=== PATIENT | male | born 1935 | race Two or more races ===

== ENCOUNTER 2017-03-22 21:39 | Inpatient (IN) | payer OTHER ==
[~2017-03-22] VITALS: Ht 177.8 cm; Wt 99.8 kg
[~2017-03-22 21:39] MED LIST: FLUO-126 PO; GLIP-204 PO; LISINOPRIL HYDROCHLOROTHIAZIDE; MEMA10TA PO; METO-169 PO; RIVA6CAP4 PO
[2017-03-22 22:27] LABS: Basophils # (auto) 0.1 uL; Basophils % (auto) 0.8 % (0.0-2.0); Eosinophils # (auto) 0.3 uL; Eosinophils % (auto) 3.5 % (0.0-7.0); Hematocrit 34.8 % (41.0-53.0); Hemoglobin 11.6 g/dL (13.5-17.5); Lymphocytes # (auto) 1.2 uL; Lymphocytes % (auto) 14.6 % (10.0-50.0); Mean Corpuscular Hemoglobin 31.7 pg (28.0-32.0); Mean Corpuscular Hgb Conc. 33.2 g/dL (32.0-36.0); Mean Corpuscular Volume 95.4 fL (80.0-100.0); Mean Platelet Volume 9.3 fL (7.4-10.4); Monocytes # (auto) 0.8 uL; Monocytes % (auto) 9.8 % (0.0-12.0); Neutrophils # (auto) 5.9 uL; Neutrophils % (auto) 71.3 % (37.0-80.0); Platelet Count (auto) 182 10^3/uL (140-450); White Blood Cell 8.3 10^3/uL (4.4-10.8)
[2017-03-22 22:30] LABS: Urine Bilirubin Negative (Negative); Urine Blood Negative /uL (Negative); Urine Color Yellow (Yellow); Urine Glucose Normal (Normal); Urine Ketone Negative (Negative); Urine Mucus FEW (None Seen); Urine Nitrite Negative (Negative); Urine RBC <1 /hpf (0 - 3); Urine Squamous Epithelial Cell FEW /hpf (<5); Urine Urobilinogen Normal (Negative); Urine pH 5.5 (5.0-8.0)
[2017-03-22 22:56] LABS: Albumin 2.9 g/dL (3.4-5.0); Alkaline Phosphatase 97 U/L (45-117); Anion Gap 8 (5-15); Aspartate Aminotransferase 17 U/L (15-37); BUN/Creatinine Ratio 16.9; Bilirubin, Total 0.3 mg/dL (0.2-1.0); Blood Urea Nitrogen 44 mg/dL (7-18); Calcium 8.1 mg/dL (8.5-10.1); Carbon Dioxide 23 mmol/L (21-32); Chloride 108 mmol/L (98-107); GFR African American 31 mL/min; GFR Non-African American 25 mL/min; Glucose 169 mg/dL (74-106); Magnesium 2.6 mg/dL (1.6-2.6); Potassium 4.5 mmol/L (3.5-5.1); Sodium 139 mmol/L (136-145); Total Protein 5.7 g/dL (6.4-8.2)
[2017-03-22 22:57] LABS: Lactic Acid w/Reflex 2.9 mmol/L (0.4-2.0)
[2017-03-22 22:58] LABS: REFLEX LACTIC ACID YES OR NO YES
[2017-03-23] MEDS ORDERED: HALOPERIDOL LACTATE 5 MG/ML INJ VIAL ONE (03:13)
[2017-03-23] MEDS ORDERED: HALOPERIDOL LACTATE 5 MG/ML INJ VIAL IM ONE (03:30)
[2017-03-23] MEDS ORDERED: NITROGLYCERIN 0.4 MG SL TAB SL PRN (05:30)
[2017-03-23] MEDS ORDERED: MORPHINE SULF INJ 2 MG/ML SYRINGE 1ML IV PRN ×2 (05:30→05:45)
[2017-03-23] MEDS ORDERED: ACETAMINOPHEN 500 MG TAB PO PRN (05:45)
[2017-03-23] MEDS ORDERED: ONDANSETRON HCL 4 MG/2 ML VIAL IV PRN (05:45)
[2017-03-23] MEDS ORDERED: DEXTROSE (50%) 50ML SYRG IV PRN (05:45)
[2017-03-23] MEDS ORDERED: LORazepam 2MG/ML-1ML VIAL IV PRN (05:45)
[2017-03-23] MEDS ORDERED: HYDROcodone-ACET 5/325MG TAB PO PRN (05:45)
[2017-03-23] MEDS ORDERED: InsuLIN REG 1unit/0.01ml Soln (100units/ml) SC SCH (07:00)
[2017-03-23] MEDS ORDERED: glipiZIDE 5 MG TAB PO SCH (07:00)
[2017-03-23] MEDS ORDERED: ACCU-CHEK COMFORT CURVE STRIP VI SCH (07:00)
[2017-03-23 08:29] VITALS: BP 156/82
[2017-03-23] MEDS ORDERED: LOR05T PO (09:08)
[2017-03-23] MEDS ORDERED: TAMS0.4C36 PO (09:08)
[2017-03-23] MEDS ORDERED: DUTA0.5C11 PO (09:08)
[2017-03-23] MEDS ORDERED: ERGO1CAP6 PO (09:08)
[2017-03-23] MEDS ORDERED: ASPI81TA27 PO (09:08)
[2017-03-23] MEDS ORDERED: HCTZ 25 MG TAB PO SCH (10:00)
[2017-03-23] MEDS ORDERED: METOPROLOL SUCCINATE XL 50 MG TAB PO SCH (10:00)
[2017-03-23] MEDS ORDERED: MEMANTINE HCL 5 MG TAB PO SCH (10:00)
[2017-03-23] MEDS ORDERED: LISINOPRIL 20 MG TAB PO SCH (10:00)
[2017-03-23] MEDS ORDERED: FLUoxetine HCL 20 MG CAP PO SCH (10:00)
[2017-03-23] MEDS ORDERED: SODIUM CHLORIDE 0.9% 1,000 ML IV ONE (12:00)
[2017-03-23] MEDS ORDERED: amLODIPine BESYLATE 5 MG TAB PO ONE (12:15)
[2017-03-23 12:51] LABS: BUN/Creatinine Ratio 19.2; Calcium 8.2 mg/dL (8.5-10.1); Potassium 4.2 mmol/L (3.5-5.1)
[2017-03-23] MEDS ORDERED: AML5T PO (13:17)
[2017-03-23 14:57] VITALS: BP 141/81
[2017-03-23] MEDS ORDERED: RIVASTIGMINE 6 MG PO SCH (18:00)
[2017-03-23] MEDS ORDERED: TAMSULOSIN HYDROCHLORIDE 0.4 MG CAP PO SCH (18:00)
[2017-03-24] MEDS ORDERED: amLODIPine BESYLATE 5 MG TAB PO SCH (10:00)
[2017-03-25] MEDS ORDERED: ACET250T3 PO (02:15)
== END 2017-03-23 15:33 | disposition home or self-care (01) | DRG 682 ==
LOC: EDBD 21:39 → ER 21:39 → TELE 21:40 → TELE-E-ADS 03-23 08:33
PROVIDERS: ADMIT Nurse Practitioner Family; ATTEND Internal Medicine
DX: N17.0 Acute kidney failure with tubular necrosis (principal); G93.41 Metabolic encephalopathy; E44.0 Moderate protein-calorie malnutrition; I13.10 Hypertensive heart and chronic kidney disease without heart failure, with stage 1 through stage 4 chronic kidney disease, or unspecified chronic kidney disease; E11.22 Type 2 diabetes mellitus with diabetic chronic kidney disease; E86.0 Dehydration; N18.4 Chronic kidney disease, stage 4 (severe); F32.9 Major depressive disorder, single episode, unspecified; F02.80 Dementia in other diseases classified elsewhere, unspecified severity, without behavioral disturbance, psychotic disturbance, mood disturbance, and anxiety; E78.5 Hyperlipidemia, unspecified; G30.9 Alzheimer's disease, unspecified; N40.0 Benign prostatic hyperplasia without lower urinary tract symptoms; T44.7X5A Adverse effect of beta-adrenoreceptor antagonists, initial encounter; Z82.49 Family history of ischemic heart disease and other diseases of the circulatory system; Z79.84 Long term (current) use of oral hypoglycemic drugs; Z79.899 Other long term (current) drug therapy; Z68.31 Body mass index [BMI] 31.0-31.9, adult
CPT/HCPCS: 36415; 51702; 70450; 71010; 80048; 80053; 80307; 81001; 82962; 83036; 83605; 83735; 84484; 85025; 87040; 93005; 96372

== ENCOUNTER 2017-09-15 17:03 | Observation (INO) | payer OTHER ==
[~2017-09-15] VITALS: Ht 175.3 cm; Wt 99.8 kg
[~2017-09-15 17:03] MED LIST changes: +ACET250T3 PO; +ASPI81CH43 PO; +ASPI81TA27 PO; +ATOR20TA50 PO; +CLOP75TA28 PO; +DUTA0.5C11 PO; +ERGO1CAP6 PO; -LISINOPRIL HYDROCHLOROTHIAZIDE; +LORA-654 PO; -METO-169 PO; +TAMS0.4C36 PO
[2017-09-15] MEDS ORDERED: SODIUM CHLORIDE 0.9% 1,000 ML IVB ONE (18:34)
[2017-09-15 18:57] LABS: Basophils # (auto) 0.1 uL; Basophils % (auto) 0.9 % (0.0-2.0); Eosinophils # (auto) 0.1 uL; Eosinophils % (auto) 1.5 % (0.0-7.0); Hemoglobin 12.8 g/dL (13.5-17.5); Lymphocytes # (auto) 0.8 uL; Lymphocytes % (auto) 10.5 % (10.0-50.0); Mean Corpuscular Hemoglobin 31.2 pg (28.0-32.0); Mean Corpuscular Hgb Conc. 32.7 g/dL (32.0-36.0); Mean Corpuscular Volume 95.2 fL (80.0-100.0); Monocytes # (auto) 0.6 uL; Monocytes % (auto) 8.1 % (0.0-12.0); Neutrophils # (auto) 6.1 uL; Nucleated Red Blood Cells % 0.1 %; Platelet Count (auto) 187 10^3/uL (140-450); Red Cell Distribution Width 14.6 % (11.8-14.3); White Blood Cell 7.8 10^3/uL (4.4-10.8)
[2017-09-15 18:58] LABS: Urine Bacteria NONE SEEN /hpf (None Seen); Urine Blood 1+ /uL (Negative); Urine Hyaline Cast FEW /lpf (0 - 2); Urine Specific Gravity 1.015 (1.001-1.035); Urine WBC 1 /hpf (0 - 3)
[2017-09-15 19:05] LABS: Alcohol, Urine < 3.0 mg/dL (0-5); Amphetamine Screen, Urine NEGATIVE (NEGATIVE); Barbiturate Scree,Urine NEGATIVE (NEGATIVE); Benzodiazephine Screen, Urine NEGATIVE (NEGATIVE); Cannabinoid Screen, Urine NEGATIVE (NEGATIVE); Cocaine Screen, Urine NEGATIVE (NEGATIVE); Opiate Scree,Urine NEGATIVE (NEGATIVE); Phencyclidine Screen, Urine NEGATIVE (NEGATIVE)
[2017-09-15 19:09] LABS: INR 1.04 (0.9-1.15); Partial Thromboplastin Time 27.3 sec (22.64-33.71); Prothrombin Time 11.3 sec (9.37-12.3)
[2017-09-15 19:25] LABS: Alanine Aminotransferase 35 U/L (16-61); Alkaline Phosphatase 79 U/L (45-117); Anion Gap 6 (5-15); Aspartate Aminotransferase 19 U/L (15-37); BUN/Creatinine Ratio 18.6; Bilirubin, Total 0.4 mg/dL (0.2-1.0); Blood Urea Nitrogen 33 mg/dL (7-18); Calcium 8.5 mg/dL (8.5-10.1); Carbon Dioxide 26 mmol/L (21-32); Chloride 109 mmol/L (98-107); GFR African American 48 mL/min; GFR Non-African American 40 mL/min; Glucose 173 mg/dL (74-106); Potassium 4.7 mmol/L (3.5-5.1); Sodium 141 mmol/L (136-145); Total Protein 5.9 g/dL (6.4-8.2)
[2017-09-15 19:34] LABS: Lactic Acid w/Reflex 2.1 mmol/L (0.4-2.0)
[2017-09-15 21:14] VITALS: BP 126/69
== END 2017-09-15 22:22 | disposition home or self-care (01) | DRG 315 ==
LOC: EDBD 17:03 → ER 17:03 → OVERFLOW 18:35 → ER 22:22
PROVIDERS: ADMIT Family Medicine; ATTEND Family Medicine
DX: I95.9 Hypotension, unspecified (principal); I13.0 Hypertensive heart and chronic kidney disease with heart failure and stage 1 through stage 4 chronic kidney disease, or unspecified chronic kidney disease; E11.22 Type 2 diabetes mellitus with diabetic chronic kidney disease; D63.1 Anemia in chronic kidney disease; N18.3 Chronic kidney disease, stage 3 (moderate); G30.1 Alzheimer's disease with late onset; E78.5 Hyperlipidemia, unspecified; F02.80 Dementia in other diseases classified elsewhere, unspecified severity, without behavioral disturbance, psychotic disturbance, mood disturbance, and anxiety; F32.9 Major depressive disorder, single episode, unspecified; F41.9 Anxiety disorder, unspecified; N40.0 Benign prostatic hyperplasia without lower urinary tract symptoms; Z82.49 Family history of ischemic heart disease and other diseases of the circulatory system
CPT/HCPCS: 36415; 80053; 80307; 81001; 82962; 83605; 83735; 84484; 85025; 85610; 85730; 87040; 93005; 96360; 96361; 99285; G0378